=== PATIENT | male | born 1995 | race Caucasian/White ===

== ENCOUNTER 2021-05-31 12:18 | Observation (INO) | payer OTHER ==
[~2021-05-31] VITALS: Ht 180.3 cm; Wt 81.6 kg
[2021-05-31 13:21] LABS: HEMOGLOBIN 15.2 gm/dl (14.0-17.5); RED BLOOD COUNT 5.06 M/UL (4.20-5.50); WHITE BLOOD COUNT 16.8 K/UL (4.5-11.0)
[2021-05-31 13:51] LABS: BUN/CREATININE RATIO 11 (0-10)
--- NOTE | 2021-05-31 17:36 | NUR ---
RECEIVED PATIENT TO THE FLOOR VIA STRETCHER FROM ER ACCOMPANIED BY THE [employer] [facility]. PATIENT SHACKLED TO THE STRETCHE VIA THE RLE AND LUE. PATIENT TRANSFERRED TO THE BED IN RM [id number]. PATIENT ASLEEP. AROUSES TO VERBAL STIMULI. SPEECH UNLCEAR. PATIENT MUMBLES. UNABLE TO OBTAIN INFO FOR ASSESSMENT PART 1 DUE TO PATIENT UNABLE TO PARTICIPATE AND NO VISITORS ALLOWED.
[2021-06-01 02:40] LABS: HEMOGLOBIN 14.2 gm/dl (14.0-17.5); RED BLOOD COUNT 4.73 M/UL (4.20-5.50)
[2021-06-01 02:56] LABS: WHITE BLOOD COUNT 8.9 K/UL (4.5-11.0)
[2021-06-01 03:31] LABS: BUN/CREATININE RATIO 11 (0-10)
== END 2021-06-01 13:26 | disposition home or self-care (01) ==
LOC: ER1 12:18 → M/S 14:09 → CDU 14:09 → M/S 17:25
PROVIDERS: Emergency Medicine; Physician Assistant; ADMIT Internal Medicine
DX: F15.10 Other stimulant abuse, uncomplicated (principal); F12.10 Cannabis abuse, uncomplicated; Z20.822 Contact with and (suspected) exposure to COVID-19; Z23 Encounter for immunization; D72.829 Elevated white blood cell count, unspecified; R73.9 Hyperglycemia, unspecified; R00.0 Tachycardia, unspecified
CPT/HCPCS: 36415; 70450; 71045; 80053; 80307; 81001; 82140; 82550; 82553; 83036; 83605; 83690; 83735; 83880; 84100; 84439; 84443; 84484; 85025; 85610; 85730; 87040; 90471; 90715; 93005; 99285; G0378; G0480; U0002